=== PATIENT | female | born 1935 | race African-American/Black ===

== ENCOUNTER 2022-03-14 07:18 | Emergency (ER) | payer MEDICARE ==
[~2022-03-14] VITALS: Ht 162.6 cm; Wt 54.4 kg
[2022-03-14 08:22] LABS: BASOPHILS % 0.9 % (0.0-2.0); EOSINOPHILS % 1.1 % (0.0-5.0); HEMATOCRIT. 32.5 % (36.0-48.0); HEMOGLOBIN. 10.6 g/dL (12.0-16.0); LYMPHOCYTES % 18.6 % (20.0-50.0); MEAN CORPUSCULAR HEMOGLOBIN 27.5 pg (28.0-32.0); MEAN CORPUSCULAR VOLUME 84.2 fL (81.0-99.0); MEAN PLATELET VOLUME 7.8 fl (7.4-10.4); MONOCYTES % 6.6 % (2.0-8.0); NEUTROPHILS % 72.8 % (40.0-76.0); PLATELET 365 x1000/uL (130-400); RED BLOOD CELL COUNT 3.86 mill/uL (4.2-5.4)
[2022-03-14 08:28] LABS: CHLORIDE 108 mEq/L (98-107)
[2022-03-14] MEDS ORDERED: FUROSEMIDE 40MG/4ML VIAL IVP ONE (09:45)
[2022-03-14 12:45] VITALS: BP 177/96
== END 2022-03-14 12:50 | disposition left against medical advice (07) ==
LOC: ER 07:18 → CANBEDREQ 12:49 → ER 12:50
DX: I11.0 Hypertensive heart disease with heart failure (principal); I50.9 Heart failure, unspecified; Z88.8 Allergy status to other drugs, medicaments and biological substances; Z20.822 Contact with and (suspected) exposure to COVID-19
CPT/HCPCS: 36415; 71045; 80053; 83880; 84484; 85025; 87426; 93005; 96374; 99285; C9803; J1940